=== PATIENT | male | born 1995 | race Caucasian/White ===

== ENCOUNTER 2017-07-02 14:07 | Emergency (ER) | payer OTHER ==
[~2017-07-02] VITALS: Ht 180.3 cm; Wt 75.7 kg
[2017-07-02 14:22] VITALS: TEMP 36.5; Ht 180.3 cm; Wt 75.7 kg
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
[2017-07-02] MEDS ORDERED: AMOX500C3 PO (15:33)
[2017-07-02 15:50] VITALS: BP 133/79; PULSE 74; O2SAT 99
== END 2017-07-02 15:50 | disposition home or self-care (01) ==
LOC: C.EDB 14:09 → C.EDD 15:50
DX: S02.92XA Unspecified fracture of facial bones, initial encounter for closed fracture (principal); S02.2XXA Fracture of nasal bones, initial encounter for closed fracture; S00.83XA Contusion of other part of head, initial encounter; W50.0XXA Accidental hit or strike by another person, initial encounter